=== PATIENT | female | born 1935 | race African-American/Black ===

== ENCOUNTER 2023-07-15 09:58 | Inpatient (IN) | payer MEDICARE, MEDICAID ==
[~2023-07-15] VITALS: Ht 177.8 cm; Wt 93.9 kg
[~2023-07-15 09:58] MED LIST: AMLO5TAB88 PO; ASPI-1160 PO; FAMO20TA8 PO; HYDR50TA39 PO; LIP40 PO
[2023-07-15 10:37] LABS: BASOPHILS % 0.6 % (0.0-2.0); EOSINOPHILS % 0.1 % (0.0-5.0); HEMATOCRIT. 37.8 % (36.0-48.0); HEMOGLOBIN. 12.7 g/dL (12.0-16.0); LYMPHOCYTES % 13.6 % (20.0-50.0); MEAN CORPUSCULAR HEMOGLOBIN 30.7 pg (28.0-32.0); MEAN CORPUSCULAR HGB CONC 33.5 g/dL (31.0-37.0); MEAN CORPUSCULAR VOLUME 91.7 fL (81.0-99.0); MEAN PLATELET VOLUME 7.6 fl (7.4-10.4); MONOCYTES % 12.3 % (2.0-8.0); NEUTROPHILS % 73.4 % (40.0-76.0); PLATELET 208 x1000/uL (130-400); RED BLOOD CELL COUNT 4.12 mill/uL (4.2-5.4); RED CELL DISTRIBUTION WIDTH 14.7 % (11.6-14.6); WHITE BLOOD COUNT 7.8 x1000/uL (4.5-11.0)
[2023-07-15] MEDS: SODIUM CHLORIDE 0.9% 1,000 ML IV ONE (10:43)
[2023-07-15] MEDS: KETOROLAC 30MG/ML VIAL IV STA (10:43)
[2023-07-15 10:52] LABS: PROTHROMBIN TIME 11.3 sec (9.6-11.0)
[2023-07-15 10:57] LABS: CARBON DIOXIDE 25 mEq/L (21-32); CHLORIDE 108 mEq/L (98-107); POTASSIUM 3.6 mEq/L (3.5-5.1); SODIUM 138 mEq/L (136-145)
[2023-07-15 10:58] LABS: CALCIUM 9.3 mg/dL (8.7-10.4)
[2023-07-15 11:03] LABS: CREATININE 1.1 mg/dL (0.6-1.0); GLUCOSE 119 mg/dL (70-105); UREA NITROGEN BLOOD 10 mg/dL (9-23)
[2023-07-15 11:07] LABS: TROPONIN I HIGH SENSITIVITY 103 ng/L (3.0-34)
[2023-07-15] MEDS: LEVOFLOXACIN 750MG PREMIX 150 ML IV ONE (11:33)
[2023-07-15] MEDS: ENOXAPARIN 60MG/0.6ML SYR SUBCUT ONE (13:28)
[2023-07-15] MEDS ORDERED: IPRATROPIUM/ALBUTEROL 0.5-3(2.5)MG/3ML NEB HHN PRN (18:00)
[2023-07-15] MEDS ORDERED: MAGNESIUM/ALUMINUM HYDROXIDE/SIMETHICONE 30ML UDC PO PRN (18:00)
[2023-07-15] MEDS ORDERED: ONDANSETRON HCL 4MG/2ML INJ IV PRN (18:00)
[2023-07-15] MEDS: AMLODIPINE 5MG TABLET PO SCH (18:39)
[2023-07-15] MEDS: PANTOPRAZOLE SODIUM 40 MG/VIAL IV SCH (18:40)
[2023-07-15] MEDS: ASPIRIN 81MG EC TABLET PO SCH (18:40)
[2023-07-15 21:19] LABS: ALANINE AMINOTRANSFERASE < 7 IU/L (10-49); ALBUMIN 4.3 g/dL (3.2-4.8); ASPARTATE AMINOTRANSFERASE 14 IU/L (<34); BILIRUBIN DIRECT 0.7 mg/dL (<=3.0); BILIRUBIN TOTAL 1.9 mg/dL (0.1-1.0); PROTEIN TOTAL 7.5 g/dL (6.0-8.3)
[2023-07-15] MEDS: DEXT 5%/0.45% NACL 1000ML 1,000 ML IV SCH (21:42)
[2023-07-15 22:00] LABS: TROPONIN I HIGH SENSITIVITY 85 ng/L (3.0-34)
[2023-07-15] MEDS: HYDRALAZINE 20MG/ML VIAL IV NR (23:16)
[2023-07-16 00:43] LABS: CREATINE KINASE 44 IU/L (34-145)
[2023-07-16 01:05] VITALS: BP 173/83; PULSE 82; RESP 18; TEMP 98.2
[2023-07-16 01:17] LABS: TROPONIN I HIGH SENSITIVITY 97 ng/L (3.0-34)
[2023-07-16] MEDS: CLONIDINE 0.1MG TABLET PO PRN (01:51)
[2023-07-16] MEDS: HYDRALAZINE HCL 50MG TABLET PO SCH (06:09)
[2023-07-16 08:00] VITALS: BP 121/65; PULSE 96; RESP 18; TEMP 97.7
[2023-07-16 12:00] VITALS: BP 149/80; PULSE 91; RESP 18; TEMP 97.7
[2023-07-16 13:17] LABS: BASOPHILS % 0.1 % (0.0-2.0); HEMATOCRIT. 39.3 % (36.0-48.0); HEMOGLOBIN. 13.3 g/dL (12.0-16.0); LYMPHOCYTES % 7.7 % (20.0-50.0); MEAN CORPUSCULAR HEMOGLOBIN 30.9 pg (28.0-32.0); MEAN CORPUSCULAR HGB CONC 33.9 g/dL (31.0-37.0); MEAN CORPUSCULAR VOLUME 91.4 fL (81.0-99.0); MEAN PLATELET VOLUME 8.3 fl (7.4-10.4); MONOCYTES % 5.3 % (2.0-8.0); NEUTROPHILS % 86.9 % (40.0-76.0); PLATELET 228 x1000/uL (130-400); RED CELL DISTRIBUTION WIDTH 14.9 % (11.6-14.6); WHITE BLOOD COUNT 9.8 x1000/uL (4.5-11.0)
[2023-07-16 13:27] LABS: CARBON DIOXIDE 23 mEq/L (21-32); CHLORIDE 106 mEq/L (98-107); POTASSIUM 3.6 mEq/L (3.5-5.1); SODIUM 139 mEq/L (136-145)
[2023-07-16 13:28] LABS: CALCIUM 9.1 mg/dL (8.7-10.4)
[2023-07-16 13:32] LABS: CREATININE 1.1 mg/dL (0.6-1.0)
[2023-07-16 13:33] LABS: GLUCOSE 110 mg/dL (70-105); UREA NITROGEN BLOOD 10 mg/dL (9-23)
[2023-07-16 13:35] LABS: PHOSPHORUS 3.7 mg/dL (2.5-4.9)
[2023-07-16 13:37] LABS: FOLIC ACID (FOLATE) SERUM 12.03 ng/mL (>5.38)
[2023-07-16 13:38] LABS: VITAMIN B12 SERUM 426 pg/mL (211-911)
[2023-07-16] MEDS: ENOXAPARIN 40MG/0.4ML SYR SUBCUT SCH (13:42)
[2023-07-16 16:00] VITALS: BP 130/79; PULSE 88; RESP 18; TEMP 97.6
[2023-07-16] MEDS ORDERED: DILTIAZEM HCL 5MG/ML 5ML VIAL IV PRN (16:30)
[2023-07-16] MEDS: METOPROLOL TARTRATE 50MG TABLET PO SCH (16:34)
[2023-07-16 16:55] LABS: POTASSIUM 3.7 mEq/L (3.5-5.1)
[2023-07-16 16:56] LABS: CALCIUM 9.2 mg/dL (8.7-10.4)
[2023-07-16 17:01] LABS: CREATININE 1.2 mg/dL (0.6-1.0)
[2023-07-16 17:04] LABS: THYROID STIMULATING HORMONE 2.11 uIU/mL (0.55-4.78)
[2023-07-16 17:06] LABS: T4 FREE 0.98 ng/dL (0.89-1.76)
[2023-07-16 20:00] VITALS: BP 148/80; PULSE 61; RESP 19; TEMP 97.5
[2023-07-17] VITALS: BP 122/57; PULSE 63; RESP 20; TEMP 97.8
[2023-07-17 04:00] VITALS: BP 131/69; PULSE 67; RESP 19; TEMP 97.5
[2023-07-17 08:00] VITALS: BP 109/58; PULSE 75; RESP 20; TEMP 97.8
[2023-07-17 09:18] LABS: HEMATOCRIT 38.9 % (36.0-48.0); HEMOGLOBIN 13.3 g/dL (12.0-16.0); MEAN CORPUSCULAR HEMOGLOBIN 31.3 pg (28.0-32.0); MEAN CORPUSCULAR VOLUME 92.1 fL (81.0-99.0); PLATELET 248 x1000/uL (130-400); RED BLOOD CELL COUNT 4.23 mill/uL (4.2-5.4); RED CELL DISTRIBUTION WIDTH 14.4 % (11.6-14.6); WHITE BLOOD COUNT 8.6 x1000/uL (4.5-11.0)
[2023-07-17 09:33] LABS: CREATININE 1.6 mg/dL (0.6-1.0)
[2023-07-17 12:00] VITALS: BP 112/58; PULSE 72; RESP 18; TEMP 98.6
[2023-07-17 16:00] VITALS: BP 123/61; PULSE 82; RESP 20; TEMP 98.9
[2023-07-17 20:00] VITALS: BP 136/74; PULSE 16; RESP 16; TEMP 97.3
[2023-07-17] MEDS: ATORVASTATIN CALCIUM 40MG TABLET PO SCH (21:19)
[2023-07-18] VITALS (7 sets, daily range): BP systolic 123–153; BP diastolic 67–89; PULSE 50–78; RESP 18–20; TEMP 96.9–98.9
[2023-07-18 08:27] LABS: HEMATOCRIT 34.5 % (36.0-48.0); HEMOGLOBIN 11.6 g/dL (12.0-16.0); MEAN CORPUSCULAR HEMOGLOBIN 30.8 pg (28.0-32.0); MEAN CORPUSCULAR HGB CONC 33.6 g/dL (31.0-37.0); MEAN CORPUSCULAR VOLUME 91.5 fL (81.0-99.0); PLATELET 273 x1000/uL (130-400); RED BLOOD CELL COUNT 3.77 mill/uL (4.2-5.4); RED CELL DISTRIBUTION WIDTH 14.5 % (11.6-14.6); WHITE BLOOD COUNT 8.5 x1000/uL (4.5-11.0)
[2023-07-18 08:35] LABS: CHLORIDE 102 mEq/L (98-107); POTASSIUM 3.6 mEq/L (3.5-5.1); SODIUM 136 mEq/L (136-145)
[2023-07-18 08:36] LABS: CALCIUM 8.9 mg/dL (8.7-10.4); CARBON DIOXIDE 25 mEq/L (21-32)
[2023-07-18 08:41] LABS: CREATININE 1.6 mg/dL (0.6-1.0); GLUCOSE 110 mg/dL (70-105)
[2023-07-18 08:42] LABS: UREA NITROGEN BLOOD 24 mg/dL (9-23)
[2023-07-18 08:43] LABS: PHOSPHORUS 3.5 mg/dL (2.5-4.9)
[2023-07-19] VITALS: BP 155/82; PULSE 78; RESP 18; TEMP 97.4
[2023-07-19 04:00] VITALS: BP 156/82; PULSE 69; RESP 18; TEMP 97
[2023-07-19 05:59] LABS: POTASSIUM 4.1 mEq/L (3.5-5.1)
[2023-07-19 06:01] LABS: CALCIUM 8.8 mg/dL (8.7-10.4)
[2023-07-19 06:06] LABS: CREATININE 1.3 mg/dL (0.6-1.0)
[2023-07-19 08:00] VITALS: BP 152/78; PULSE 70; RESP 20; TEMP 99
[2023-07-19] MEDS: SODIUM CHLORIDE 0.9% 1,000 ML IV SCH (09:00)
[2023-07-19 12:00] VITALS: BP 142/67; PULSE 59; RESP 18; TEMP 98.6
[2023-07-19] MEDS: AMLODIPINE 5MG TABLET PO SCH (12:04)
[2023-07-19 16:00] VITALS: BP 158/79; PULSE 68; RESP 18; TEMP 98.7
[2023-07-19 20:01] VITALS: BP 155/76; PULSE 70; RESP 18; TEMP 98.4
[2023-07-20] VITALS (7 sets, daily range): BP systolic 112–160; BP diastolic 70–81; PULSE 62–74; RESP 18–20; TEMP 97.3–98.8
[2023-07-20] MEDS ORDERED: ASPIRIN 81MG EC TABLET PO SCH (10:00)
[2023-07-20] MEDS: ATORVASTATIN CALCIUM 40MG TABLET PO SCH (21:08)
[2023-07-21 00:50] VITALS: BP 144/66; PULSE 55; RESP 18; TEMP 97.7
[2023-07-21 04:10] VITALS: BP 136/76; PULSE 78; RESP 19; TEMP 97.2
[2023-07-21 08:00] VITALS: BP 157/85; PULSE 73; RESP 18; TEMP 97
[2023-07-21] MEDS: ASPIRIN 81MG EC TABLET PO SCH (09:58)
[2023-07-21] MEDS: FAMOTIDINE 20MG/2ML VIAL IV SCH (09:58)
[2023-07-21] MEDS: CLOPIDOGREL 75MG TABLET PO SCH (10:00)
[2023-07-21] MEDS: ACETAMINOPHEN 325MG TABLET PO PRN (10:28)
[2023-07-21 12:00] VITALS: BP 132/66; PULSE 65; RESP 14; TEMP 97.1
[2023-07-21 16:00] VITALS: BP 147/81; PULSE 62; RESP 14; TEMP 97.9
[2023-07-21 20:00] VITALS: BP 140/70; PULSE 75; RESP 19; TEMP 99.3
[2023-07-22] VITALS: BP 143/83; PULSE 56; RESP 18; TEMP 99.7
[2023-07-22 04:00] VITALS: BP 146/83; PULSE 60; RESP 18; TEMP 98.6
[2023-07-22 08:00] VITALS: BP 154/80; RESP 18; TEMP 98.1
[2023-07-22 11:49] VITALS: BP 150/75; PULSE 60; TEMP 98.1; O2SAT 99
[2023-07-22 12:00] VITALS: BP 150/75; PULSE 60; RESP 20; TEMP 98.1
== END 2023-07-22 14:27 | DRG 64 ==
LOC: ER 09:58 → 5WST 13:38 → EDBEDREQ 13:53 → EDBEDREQTM 13:53 → 7WST 07-16 01:08
PROVIDERS: ADMIT Internal Medicine; ATTEND Internal Medicine
DX: I63.81 Other cerebral infarction due to occlusion or stenosis of small artery (principal); I21.A1 Myocardial infarction type 2; I47.10 Supraventricular tachycardia, unspecified; G82.20 Paraplegia, unspecified; I16.9 Hypertensive crisis, unspecified; J98.11 Atelectasis; I16.0 Hypertensive urgency; E11.9 Type 2 diabetes mellitus without complications; R62.7 Adult failure to thrive; I10 Essential (primary) hypertension; Z68.29 Body mass index [BMI] 29.0-29.9, adult; Z96.653 Presence of artificial knee joint, bilateral; E78.00 Pure hypercholesterolemia, unspecified; G89.4 Chronic pain syndrome; I45.10 Unspecified right bundle-branch block; M48.02 Spinal stenosis, cervical region; M48.061 Spinal stenosis, lumbar region without neurogenic claudication; M54.16 Radiculopathy, lumbar region; Z79.82 Long term (current) use of aspirin; Z74.01 Bed confinement status; Z79.899 Other long term (current) drug therapy; Z82.49 Family history of ischemic heart disease and other diseases of the circulatory system; Z86.73 Personal history of transient ischemic attack (TIA), and cerebral infarction without residual deficits
CPT/HCPCS: 36415; 70551; 71045; 72141; 72148; 76770; 80048; 80061; 80076; 82550; 82607; 82746; 83036; 83605; 83735; 83880; 84100; 84145; 84439; 84443; 84484; 85025; 85027; 85379; 92523; 92610; 93005; 93306; 93880; 93970; 97162; 97167; 97530; 99285; C9113; J0360; J1650; J1885; J1956; J3490; J7030